=== PATIENT | male | born 1995 | race African-American/Black ===

== ENCOUNTER 2016-11-16 19:47 | Emergency (ER) | payer MEDICAID ==
[~2016-11-16] VITALS: Ht 185.4 cm; Wt 81.6 kg
[2016-11-16 19:50] VITALS: BP 134/74
--- NOTE | 2016-11-17 00:08 | NUR ---
Patient ambulated to bed 04.
--- NOTE | 2016-11-17 00:15 | NUR ---
Patient being evaluated by DR. JUNE at bedside.
[2016-11-17 00:47] LABS: HEMATOCRIT 42.5 % (36-52); HEMOGLOBIN 13.8 g/dL (12.0-18.0); MEAN CORPUSCULAR HEMOGLOBIN 29 pg (27-31); MEAN CORPUSCULAR HGB CONC 32 g/dL (33-37); MEAN CORPUSCULAR VOLUME 89 fL (80-94); PLATELET COUNT (AUTO) 219 K/uL (140-450); RED BLOOD CELL COUNT(AUTO) 4.76 MIL/uL (4.20-6.10); RED CELL DISTRIBUTION WIDTH 13.5 % (11.6-13.7); WHITE BLOOD COUNT (AUTO) 7.1 K/uL (4.8-10.8)
--- NOTE | 2016-11-17 00:53 | NUR ---
21Y/M PT. PRESENTS TO ED WITH C/O CHEST PAIN X 2 WKS. PT. STATES HE HAVING CHEST PAIN ON AND OFF X 2 YRS. NO MEDCAL HX. AAO X4, AMBULATORY WITH STEADY GAIT. RESPIRATIONS ROOM AIR, EVEN AND UNLABORED. PT. STATES PAIN 4/10. VSS, NO S/SX OF DISTRESS AT THIS TIME. ER MD MADE AWARE OF PT. STATUS.
[2016-11-17] MEDS ORDERED: KETOROLAC 30 MG/ML VIAL IM ONE (01:20)
[2016-11-17] MEDS ORDERED: METHOCARBAMOL 500 MG TAB PO ONE (01:20)
[2016-11-17 01:46] LABS: BAND % (MANUAL) 1 % (0-8); EOSINOPHILS % (MANUAL) 1 % (0-4); LYMPHOCYTES % (MANUAL) 73 % (20-46); MONOCYTES % (MANUAL) 6 % (5-12); NEUTROPHILS % (MANUAL) 19 (43-65)
[2016-11-17 02:13] LABS: ANION GAP 11.4 (8-16); CALCIUM 9.1 mg/dL (8.5-10.1); POTASSIUM 3.4 mmol/L (3.5-5.1)
[2016-11-17 02:14] LABS: ALBUMIN 4.3 g/dL (3.4-5.0); TOTAL BILIRUBIN 0.4 mg/dL (0.0-1.0); TOTAL PROTEIN, SERUM 7.4 g/dL (6.4-8.2)
[2016-11-17 02:22] LABS: AMPHETAMINE, URINE NEGATIVE ng/ml (NEG <=1000); BARBITURATE, URINE NEGATIVE ng/ml (NEG <=200); BENZODIAZEPINE, URINE NEGATIVE ng/mL (NEG <=200); CANNABINOID, URINE POSITIVE ng/mL (NEG <=50); COCAINE, URINE NEGATIVE ng/mL (NEG <=300); OPIATE, URINE NEGATIVE ng/mL (NEG <=2000); PHENCYCLIDINE SCREEN,URINE NEGATIVE ng/mL (NEG <=25)
--- NOTE | 2016-11-17 02:30 | NUR ---
Patient discharged with v/s stable. Written and verbal after care instructions given and explained. Patient alert, oriented and verbalized understanding of instructions. Ambulatory with steady gait. All questions addressed prior to discharge. ID band removed. Patient advised to follow up with PMD. Rx of MOTRIN 600 MG given. Patient educated on indication of medication including possible reaction and side effects. Opportunity to ask questions provided and answered.
[2016-11-17 02:31] VITALS: BP 122/59
== END 2016-11-17 02:30 | disposition home or self-care (01) ==
LOC: MED 19:47
DX: R07.89 Other chest pain (principal); F12.90 Cannabis use, unspecified, uncomplicated
CPT/HCPCS: 36415; 71010; 80053; 80305; 81002; 84484; 85025; 85379; 93005; 99285; Q0092